=== PATIENT | female | born 1985 | race Caucasian/White ===

== ENCOUNTER 2016-07-15 15:28 | Emergency (ER) | payer OTHER ==
[~2016-07-15] VITALS: Ht 157.5 cm; Wt 93.5 kg
[2016-07-15 15:50] VITALS: Ht 157.5 cm; Wt 93.5 kg
[2016-07-15] MEDS ORDERED: ACET500C5 PO (18:07)
[2016-07-15 18:16] VITALS: BP 120/78; PULSE 72; RESP 16; TEMP 97.9
--- NOTE | 2016-07-16 00:38 | ERD ---
ER Documentation Chief Complaint Date/Time DATE: 07/16/16 TIME: 00:36 Chief Complaint PT C/O L BREAST PAIN X 1 DAY 08/05 DENIES REDNESS OR SWELLING HPI 31-year-old female with no significant past medical history presents to the ED complaining of left breast pain that started 2 days ago. Describes pain as sharp and rates it a 5 out of 10. Denies taking any medications. States that touching her breasts worsens the pain. States that her last menses was on June 17, 2016. Reports that she has a family history of breast cancer, her grandmother was diagnosed in her 70s. Denies any chest pain, fever, shortness of breath, wheezing, abdominal pain, nausea, vomiting, diarrhea, dyspnea on exertion, cough. ROS All systems reviewed and are negative except as per history of present illness. Medications Home Meds Active Scripts Ibuprofen* (Motrin*) 800 Mg Tab, 800 MG PO Q6H Y for PAIN AND OR ELEVATED TEMP, #30 TAB Prov:YOLANDA TRUONG MD 07/16/16 Acetaminophen* (Tylophen*) 500 Mg Capsule, 1 CAP PO Q6H Y for PAIN AND OR ELEVATED TEMP, #20 CAP Prov:CHAVA GIL PA-C 07/15/16 Allergies Allergies: Coded Allergies: No Known Allergy (Unverified , 07/16/16) PMhx/Soc Medical and Surgical Hx: pt denies Medical Hx, pt denies Surgical Hx History of Surgery: No Anesthesia Reaction: No Hx Neurological Disorder: No Hx Respiratory Disorders: No Hx Cardiac Disorders: No Hx Psychiatric Problems: No Hx Miscellaneous Medical Probl: No Hx Alcohol Use: No Hx Substance Use: No Hx Tobacco Use: No Physical Exam Vitals Vital Signs Date Time Temp Pulse Resp B/P Pulse Ox O2 Delivery O2 Flow Rate FiO2 07/15/16 18:16 97.9 72 16 120/78 07/15/16 15:50 98.6 85 17 128/78 99 Physical Exam Const: [id number], well-nourished. In no acute distress. Head: Atraumatic, normocephalic Eyes: Normal Conjunctiva without injection. No purulent discharge. PERRL. EOMI ENT: Normal external ear. Ear canal without erythema. Tympanic membrane pearly rock without effusion or bulging. Nasal canal clear with normal turbinates. Moist oropharynx without tonsillar exudates. Non-erythematous pharynx. Uvula midline. No drooling. No trismus. Neck: Full range of motion. No meningismus. No cervical lymphadenopathy. Resp: Clear to auscultation bilaterally. No wheezing, rhonchi, rales, or crackles. No accessory muscle use. No retractions. Cardio: Regular rate and rhythm. No murmurs, rubs or gallops. Breast: Tenderness palpation of the left breast. No fluctuance or induration. No erythema or edema. No areolar discharge. No purulent discharge. Slight tenderness palpation of the inferior portion of patient's left breast. Right breast normal. Abd: Soft, non tender, non distended. Normal bowel sounds. No palpable masses. No rebound tenderness. No guarding. Skin: No petechiae or rashes Back: No midline tenderness. No CVA tenderness. Ext: No cyanosis, or edema. Neur: Awake and alert. Psych: Normal Mood and Affect Procedures/MDM This is a 31-year-old female patient with no significant past medical history presents to the ED complaining of left breast pain. Patient is afebrile and nontoxic-appearing. At this time the physical therapist technician stated that there may not be a radiologist that could read the breast ultrasound at this time. Patient was instructed to return to the ED 7 AM in the morning of July 16, 2016 for further evaluation with a breast ultrasound. Patient was also instructed to follow-up with her him analyst for further evaluation and treatment. Differential diagnosis considered include but is not limited to fibroadenoma, cyst, fibrocystic changes, galactocele, fat necrosis, malignancy. No evidence of mastitis, abscess, deep space infection, sepsis, cellulitis, or other emergent conditions. Discharge medications: Tylenol Follow up with primary care physician in 1-2 days. Instructed patient to return to the ED sooner for any worsening symptoms. Patient's questions were answered. Patient understood and agreed with discharge plan. Patient discharged stable. Departure Diagnosis: Primary Impression: Breast pain Condition: Stable Patient Instructions: Breast Anatomy, Breast Self-Exam (BSE) Referrals: [facility] YOU HAVE RECEIVED A MEDICAL SCREENING EXAM AND THE RESULTS INDICATE THAT YOU DO NOT HAVE A CONDITION THAT REQUIRES URGENT TREATMENT IN THE EMERGENCY DEPARTMENT. FURTHER EVALUATION AND TREATMENT OF YOUR CONDITION CAN WAIT UNTIL YOU ARE SEEN IN YOUR DOCTORS OFFICE WITHIN THE NEXT 1-2 DAYS. IT IS YOUR RESPONSIBILITY TO MAKE AN APPOINTMENT FOR FOLOW-UP CARE. IF YOU HAVE A PRIMARY DOCTOR --you should call your primary doctor and schedule an appointment IF YOU DO NOT HAVE A PRIMARY DOCTOR YOU CAN CALL OUR PHYSICIAN REFERRAL HOTLINE AT IF YOU CAN NOT AFFORD TO SEE A PHYSICIAN YOU CAN CHOSE FROM THE FOLLOWING [facility] [address] [facility]. [facility] [address] [facility] [address]. [facility] [address] [facility]. [facility] [address] [facility]. [facility] [address] [facility]. [facility] YOU HAVE RECEIVED A MEDICAL SCREENING EXAM AND THE RESULTS INDICATE THAT YOU DO NOT HAVE A CONDITION THAT REQUIRES URGENT TREATMENT IN THE EMERGENCY DEPARTMENT. FURTHER EVALUATION AND TREATMENT OF YOUR CONDITION CAN WAIT UNTIL YOU ARE SEEN IN YOUR DOCTORS OFFICE WITHIN THE NEXT 1-2 DAYS. IT IS YOUR RESPONSIBILITY TO MAKE AN APPOINTMENT FOR FOLOW-UP CARE. IF YOU HAVE A PRIMARY DOCTOR --you should call your primary doctor and schedule and appointment IF YOU DO NOT HAVE A PRIMARY DOCTOR YOU CAN CALL OUR PHYSICIAN REFERRAL HOTLINE AT . IF YOU CAN NOT AFFORD TO SEE A PHYSICIAN YOU CAN CHOSE FROM THE FOLLOWING [facility]: [facility] [address] [place] [address] [facility] [address] [place] [address] [facility] [address] [place] [address] [employer] [place] [address] [facility] [address] [place] [address]ME [address] [address] [address] SABRINA SOLOMON [address] [place] [address] DR OVAL[place], [facility] [address] [facility], [address], [place] [address] DR GARCIA, [facility] [address] [address] [facility], [place] [address] [facility] [address] [place] [address] [address] [facility], [facility] [address] - JELANI WARNER [address], [place] [address] DR YU, ADELINA [address] [facility]. [address], [facility] [address] [address] LAIRD, [facility] [address] [place], [place] [id number] [facility] Hours: 8:00 am - 5:00 pm Additional Instructions: TODAY THERE IS NO RADIOLOGIST THAT CAN READ THE BREAST ULTRASOUND. PLEASE RETURN BACK TO THE ED 07/16/16 AT 7AM FOR BREAST ULTRASOUD OR FOLLOW UP TOMORROW WITH A [facility] [employer] FOR REFERRAL FOR OUTPATIENT ULTRASOUND AND FURTHER EVALUATION.Return to this facility if you are not improving as expected. CHAVA GIL PA-C Jul 16, 2016 00:38
[2016-07-16] MEDS ORDERED: IBUP800T25 PO (07:45)
== END 2016-07-15 18:17 | disposition home or self-care (01) ==
LOC: FTE 15:28
DX: N64.4 Mastodynia (principal)

== ENCOUNTER 2016-07-16 06:52 | Emergency (ER) | payer OTHER ==
[~2016-07-16] VITALS: Ht 160 cm; Wt 92.0 kg
[~2016-07-16 06:52] MED LIST: ACET500C5 PO
[2016-07-16 06:56] VITALS: Ht 160 cm; Wt 92.0 kg
[2016-07-16] MEDS ORDERED: IBUP800T25 PO (07:45)
--- NOTE | 2016-07-16 07:50 | ERD ---
ER Documentation Chief Complaint Date/Time DATE: 07/16/16 TIME: 07:46 Chief Complaint left breast pain x 2 days, seen here yesterday asked to return this morning HPI 31-year-old female who presents with left breast pain for approximately 2 days. The patient was seen here yesterday and asked to return for possible breast ultrasound imaging. The patient describes sharp pain when touching the periareolar area of her left breast. She describes it as sharp, only worse with touch and improved with rest. She denies any lumps or masses, no fevers or chills, no chest pain, no pleuritic pain, no shortness of breath. She denies any skin changes. She does have a family history of breast cancer and is concerned. She denies fluctuating changes with menstrual cycles. She denies any recent trauma. No discharge from nipple. ROS All systems reviewed and are negative except as per history of present illness. Medications Home Meds Active Scripts Ibuprofen* (Motrin*) 800 Mg Tab, 800 MG PO Q6H Y for PAIN AND OR ELEVATED TEMP, #30 TAB Prov:YOLANDA TRUONG MD 07/16/16 Acetaminophen* (Tylophen*) 500 Mg Capsule, 1 CAP PO Q6H Y for PAIN AND OR ELEVATED TEMP, #20 CAP Prov:CHAVA GIL PA-C 07/15/16 Allergies Allergies: Coded Allergies: No Known Allergy (Unverified , 07/16/16) PMhx/Soc History of Surgery: No Anesthesia Reaction: No Hx Neurological Disorder: No Hx Respiratory Disorders: No Hx Cardiac Disorders: No Hx Psychiatric Problems: No Hx Miscellaneous Medical Probl: No Hx Alcohol Use: No Hx Substance Use: No Hx Tobacco Use: No Smoking Status: Never smoker FmHx Family History: No diabetes Physical Exam Vitals Vital Signs Date Time Temp Pulse Resp B/P Pulse Ox O2 Delivery O2 Flow Rate FiO2 07/16/16 06:56 97.6 76 18 112/67 99 Physical Exam General: Well developed, well nourished, no acute distress Head: Normocephalic, atraumatic. Eyes: EOM intact ENT: Moist mucous membranes Neck: Full ROM Respiratory: No respiratory distress Cardiovascular: Good capillary refil Abdominal: Nondistended : Deferred MSK: No edema, no unilateral swelling, 5/5 strength Neurologic: Alert and oriented, moving all extremities, normal speech, steady gait Skin: Chaperoned left breast exam reveals normal breast tissue without lumps or masses, inconsistent area of tenderness around the 3 to 4 o'clock position of the breast. No skin changes, no peau d'orange, no nipple discharge, no adnexal lymphadenopathy. Psych: Normal mood Procedures/MDM Urine hCG is negative. The patient was asked to return for breast ultrasound. However, the patient has no evidence of breast abscess or mass or lumps. I do not believe the ultrasound will be revealing. I do not feel the patient requires emergent breast ultrasound imaging. The patient has follow-up with SUPERVISOR POLICY CHANGE CLERKS within 2 weeks. She was advised to follow-up with that provider. The patient may require outpatient breast ultrasound imaging versus mammography versus serial exams. No signs or symptoms that are concerning for cardiopulmonary process. The patient does not exhibit symptoms of pulmonary embolism, no evidence of acute coronary syndrome. I advised warm compresses, nonsteroidal anti-inflammatories and serial exams. We discussed follow up with the patient's primary care doctor within 24 to 48 hours as needed. We also discussed return to the emergency room for worsening symptoms or worsening condition. Outpatient referral: [employer] [facility]KS Discharge Medications: Motrin Departure Diagnosis: Primary Impression: Breast pain, left Condition: Stable Patient Instructions: Breast Self-Exam (BSE) Referrals: [facility] YOU HAVE RECEIVED A MEDICAL SCREENING EXAM AND THE RESULTS INDICATE THAT YOU DO NOT HAVE A CONDITION THAT REQUIRES URGENT TREATMENT IN THE EMERGENCY DEPARTMENT. FURTHER EVALUATION AND TREATMENT OF YOUR CONDITION CAN WAIT UNTIL YOU ARE SEEN IN YOUR DOCTORS OFFICE WITHIN THE NEXT 1-2 DAYS. IT IS YOUR RESPONSIBILITY TO MAKE AN APPOINTMENT FOR FOLOW-UP CARE. IF YOU HAVE A PRIMARY DOCTOR --you should call your primary doctor and schedule an appointment IF YOU DO NOT HAVE A PRIMARY DOCTOR YOU CAN CALL OUR PHYSICIAN REFERRAL HOTLINE AT IF YOU CAN NOT AFFORD TO SEE A PHYSICIAN YOU CAN CHOSE FROM THE FOLLOWING [facility] CLINICS [facility] [address]. [facility] [address]. [facility] [address] [facility] [address] [facility] [address] [facility]. [facility] [address] [facility]. [facility] YOU HAVE RECEIVED A MEDICAL SCREENING EXAM AND THE RESULTS INDICATE THAT YOU DO NOT HAVE A CONDITION THAT REQUIRES URGENT TREATMENT IN THE EMERGENCY DEPARTMENT. FURTHER EVALUATION AND TREATMENT OF YOUR CONDITION CAN WAIT UNTIL YOU ARE SEEN IN YOUR DOCTORS OFFICE WITHIN THE NEXT 1-2 DAYS. IT IS YOUR RESPONSIBILITY TO MAKE AN APPOINTMENT FOR FOLOW- CARE. IF YOU HAVE A PRIMARY DOCTOR --you should call your primary doctor and schedule and appointment IF YOU DO NOT HAVE A PRIMARY DOCTOR YOU CAN CALL OUR PHYSICIAN REFERRAL HOTLINE AT . IF YOU CAN NOT AFFORD TO SEE A PHYSICIAN YOU CAN CHOSE FROM THE FOLLOWING [facility] IN[facility]IONS: [facility] [address] [place] [address] [facility] [address] [place] [address] [facility] [address] [place] [address] SUPER[employer]ICY CHANGE [place] [address] [facility] [address] [place], [place] [id number] OFFICE FAX ENRRIQUE GUTIERREZNICA [address] [place], [place] [id number] DR[address] SOLOMONFORMERLY [facility] [address] [place] [address] [facility] [address] [facility], [address] [address] [place] [id number] [facility] [address] [place] [address] [address] [facility] [id number] - JELANI WARNER [address], [place] [address] DR YU, ADELINA [address] [facility] [address], [place] [address] DR LAIRD, [facility] [address] [place] [address] Additional Instructions: Please follow-up with your SUPERVISOR [employer] CHANGE CLERKS as planned. Return for any fevers, worsening symptoms or palpable mass. Outpatient ultrasound imaging or mammography may be necessary. YOLANDA TRUONG MD Jul 16, 2016 07:50
== END 2016-07-16 07:58 | disposition home or self-care (01) ==
LOC: FTE 06:52
DX: N64.4 Mastodynia (principal)
CPT/HCPCS: 99283

== ENCOUNTER 2018-11-03 14:01 | Emergency (ER) | payer OTHER ==
[~2018-11-03] VITALS: Ht 157.5 cm; Wt 93.3 kg
[~2018-11-03 14:01] MED LIST changes: +IBUP800T48 PO; +LORA1TAB PO
[2018-11-03 14:07] VITALS: BP 129/82; PULSE 84; RESP 20; Ht 157.5 cm; Wt 93.3 kg
--- NOTE | 2018-11-03 14:58 | ERD ---
ER Documentation Chief Complaint Chief Complaint 'dizzy': feels faint since AM; onset at rest. steady gait. no med hx HPI 33-year-old female states that today she felt "dizzy. 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 She did not feel like she was spinning or as if the room was spinning. She has no chest pain or palpitations. No shortness of breath. She did states she has some paresthesias in her lips which is now resolved. All of her symptoms have now resolved. She has no dizziness anymore. No alcohol or drug use. She does states she has a history of anxiety ROS All systems reviewed and are negative except as per history of present illness. Medications Home Meds Active Scripts Lorazepam* (Lorazepam*) 1 Mg Tablet, 1 MG PO Q8, #7 TAB Prov:BEAR ALDRIDGE PA-C 11/03/18 Ibuprofen* (Motrin*) 800 Mg Tab, 800 MG PO Q6H PRN for PAIN AND OR ELEVATED TEMP, #30 TAB Prov:YOLANDA TRUONG MD 07/16/16 Acetaminophen* (Tylophen*) 500 Mg Capsule, 1 CAP PO Q6H PRN for PAIN AND OR ELEVATED TEMP, #20 CAP Prov:CHAVA GIL PA-C 07/15/16 Allergies Allergies: Coded Allergies: No Known Allergy (Unverified , 07/16/16) PMhx/Soc History of Surgery: No Anesthesia Reaction: No Hx Neurological Disorder: No Hx Respiratory Disorders: No Hx Cardiac Disorders: No Hx Psychiatric Problems: No Hx Miscellaneous Medical Probl: No Hx Alcohol Use: No Hx Substance Use: No Hx Tobacco Use: No FmHx Family History: No diabetes Physical Exam Vitals Vital Signs Date Temp Pulse Resp B/P (MAP) Pulse Ox O2 O2 Flow FiO2 Time Delivery Rate 11/03/18 97.2 84 20 129/82 96 14:07 (98) Physical Exam INITIAL VITAL SIGNS: Reviewed by me GENERAL: Awake, alert and oriented x 4, well appearing, nontoxic, speaking in full sentences. No acute distress HEAD: Atraumatic NECK: Supple. No masses. Full range of motion. No meningismus. No midline tenderness. EYES: EOMI. PERRL. RESPIRATORY: Clear to auscultation bilaterally. Symmetric chest wall rise. No wheezing or rales. No accessory muscle use. CV: Regular rate and rhythm. No murmurs, rubs, or gallops. ABDOMEN: Soft, non-distended. Nontender. Negative [place]. Negative McBurneys point tenderness. No CVA tenderness bilaterally. No guarding. No rebound. NEUROLOGIC: Normal mental status and speech. Face is symmetric. Moves all extremities equally. Motor and sensory distally intact. Normal coordination. Ambulates with a strong steady gait. Results 24 hrs Laboratory Tests Test 11/03/18 15:00 11/03/18 15:14 11/03/18 15:15 Bedside Glucose 88 mg/dL POC Beta HCG, Qualitative NEGATIVE Bedside Urine pH (LAB) 5.5 Bedside Urine Protein (LAB) Negative Bedside Urine Glucose (UA) Negative Bedside Urine Ketones (LAB) Negative Bedside Urine Blood Negative Bedside Urine Nitrite (LAB) Negative Bedside Urine Leukocyte Esterase (L Negative Procedures/MDM Patient is here for vague complaints of dizziness and lightheadedness that have now resolved. She does have a history of anxiety and she does describe symptoms consistent with anxiety. I did do an Accu-Chek, EKG, and test. Discharged with a small amount of Ativan. Patient counseled regarding my diagnostic impression and care plan. Prior to discharge all questions answered. Pt agrees with treatment plan and understands strict return precautions. Pt is instructed to follow up with primary care provider within 24-48 hours. Precautionary instructions provided including instructions to return to the ER if not improving or for any worsening or changing symptoms or concerns. Departure Diagnosis: Primary Impression: Dizziness Condition: Stable BEAR ALDRIDGE PA-C Nov 03, 2018 14:58
== END 2018-11-03 15:24 | disposition home or self-care (01) ==
LOC: FTE 14:01
DX: R42 Dizziness and giddiness (principal)
CPT/HCPCS: 81003; 81025; 82962; 93005; Z7502